=== PATIENT | female | born 1965 | race Two or more races ===

== ENCOUNTER 2021-11-05 12:45 | Inpatient (IN) | payer OTHER ==
[~2021-11-05] VITALS: Ht 160 cm; Wt 72.6 kg
[2021-11-05] MEDS ORDERED: ZIAC 2.5-6.251 EACH PO (14:59)
[2021-11-09] MEDS ORDERED: VITAMIN D3250 MCG (10:26)
[2021-11-09] MEDS ORDERED: LANSOPRAZOLE30 MG (10:26)
[2021-11-09] MEDS ORDERED: LORATADINE10 MG (10:26)
[2021-11-09] MEDS ORDERED: DICYCLOMINE HCL20 MG (10:26)
[2021-11-09] MEDS ORDERED: ESOMEPRAZOLE MA40 MG (10:26)
[2021-11-12] MEDS ORDERED: HYOSCYAMINE0.125 M1 SL (11:14)
[2021-11-12] MEDS ORDERED: ULTRACET PO (11:15)
== END 2021-11-12 11:54 | disposition home or self-care (01) | DRG 331 ==
LOC: O/R 11-09 06:00 → SURH 11-09 06:00
PROVIDERS: ADMIT Surgery; ATTEND Surgery
PROC: 0DTG4ZZ Resection of Left Large Intestine, Percutaneous Endoscopic Approach (ICD-10-PCS; principal; 2021-11-09 07:00)
DX: K60.1 Chronic anal fissure (principal); K60.3 Anal fistula; R59.0 Localized enlarged lymph nodes; K59.04 Chronic idiopathic constipation; D12.3 Benign neoplasm of transverse colon; D12.6 Benign neoplasm of colon, unspecified; Z20.822 Contact with and (suspected) exposure to COVID-19; I11.9 Hypertensive heart disease without heart failure; I12.9 Hypertensive chronic kidney disease with stage 1 through stage 4 chronic kidney disease, or unspecified chronic kidney disease; N18.2 Chronic kidney disease, stage 2 (mild)